=== PATIENT | male | born 1995 | race Two or more races ===

== ENCOUNTER → 2024-02-20 | Outpatient (CLI) | payer OTHER, SELFPAY ==
--- NOTE | 2024-02-20 | XR_ITS ---
Examination: Right knee 4 views TECHNIQUE: AP oblique lateral axial right knee 4 views Exam date and time: February 20, 2024 0815 hours INDICATIONS: Injury to the knee 2 weeks ago, knee pain. FINDINGS: No fracture or dislocation Normal bone density No foreign body IMPRESSION: No fracture or dislocation
== END | disposition home or self-care (01) ==
LOC: CDIM 07:00
PROVIDERS: Referring Provider Physician Assistant; Visit Provider Physician Assistant
DX: S80.01XA Contusion of right knee, initial encounter (principal); X58.XXXA Exposure to other specified factors, initial encounter
CPT/HCPCS: 73564

== ENCOUNTER → 2024-03-10 | Outpatient (CLI) | payer OTHER, SELFPAY ==
[2024-03-10 18:00] LABS: Anion Gap 8 (7-16); BUN/Creatinine Ratio 18 Ratio (12-20); Blood Urea Nitrogen 18 mg/dL (9-23); Calcium 10.5 mg/dL (8.3-10.6); Carbon Dioxide 28.5 mMol/L (20.0-31.0); Chloride 102 mMol/L (98-107); Free T4 (Free Thyroxine) 1.01 ng/dL (0.89-1.76); Glucose 86 mg/dL (74-106); Osmolality,Calculated 276 (275-295); Potassium 4.6 mMol/L (3.4-5.1); Sodium 138 mMol/L (136-145); Thyroid Stimulating Hormone 5.99 uIU/mL (0.55-4.78); eGFR > 60 See Note
== END | disposition home or self-care (01) ==
LOC: COPL 16:42
PROVIDERS: PCP Internal Medicine; Referring Provider Internal Medicine Cardiovascular Disease; Visit Provider Internal Medicine Cardiovascular Disease
DX: E05.90 Thyrotoxicosis, unspecified without thyrotoxic crisis or storm (principal); I45.10 Unspecified right bundle-branch block
CPT/HCPCS: 36415; 80048; 84439; 84443